=== PATIENT | female | born 1985 | race Caucasian/White ===

== ENCOUNTER 2020-07-15 15:07 | Emergency (ER) | payer OTHER ==
[~2020-07-15] VITALS: Ht 165.1 cm; Wt 64.4 kg
[2020-07-15 15:22] VITALS: Ht 165.1 cm; Wt 64.4 kg
[2020-07-15 16:10] LABS: microscopic required? YES; urine erythrocyte TRACE (NEGATIVE)
[2020-07-15 19:42] VITALS: BP 119/86
== END 2020-07-15 19:42 | disposition home or self-care (01) ==
LOC: ED 15:07
PROVIDERS: Emergency Medicine
DX: O26.891 Other specified pregnancy related conditions, first trimester (principal); R10.30 Lower abdominal pain, unspecified; Z3A.01 Less than 8 weeks gestation of pregnancy
CPT/HCPCS: Q0092